=== PATIENT | female | born 1980 | race African-American/Black ===

== ENCOUNTER 2016-10-12 17:56 | Emergency (ER) | payer BC, MEDICARE ==
[~2016-10-12] VITALS: Ht 160 cm; Wt 106.4 kg
[2016-10-12 17:56] VITALS: TEMP 98.5; Ht 160 cm; Wt 106.4 kg
[~2016-10-12 17:56] MED LIST changes: -ALBU90AE INH; -GADOBUTROL 10mMol/10ml INJECTION IV ONE; -INSU100I12 SQ; -NORMAL SALINE 50 ML IV ONE; -SALINE FLUSH 10ml SYRINGE ONE
--- NOTE | 2016-10-12 18:01 | ERPDOC ---
Departure Disposition Decision Date: Oct 12, 2016 Disposition Decision Time: 18:31 Disposition: 01 DISCHARGED HOME, SELF-CARE Impression Impression Impression: Primary Impression: Medication reaction Encounter type: initial encounter Qualified Codes: T88.7XXA - Unspecified adverse effect of drug or medicament, initial encounter Severity: Moderate Condition: Improved Seen By: Physician only Referrals: AMY GONZALEZ MD (Family) Patient Instructions: Adverse Drug Reaction (ED) Problems/Meds/Labs Reviewed?: Yes Medications reviewed and manag: Yes Additional Instructions: Avoid gadolinium dye in the future May use Benadryl up to 50 mg every 6 hours as needed for itching or rash or tingling to the face Zofran 4 mg tablets one every 6 hours as needed for nausea or vomiting Follow up care ordered?: Yes Mental Status: Alert HPI - General Medical General Stated Complaint: REACTION TO CONTRACT Time Seen by Provider: 17:59 Source: patient Exam Limitations: no limitations HPI - General Medical Initial Comments Patient was in the radiology department getting an MRI ordered by Dr. El, when she began having nausea vomiting and tingling to the left side of her face and body, just after IV contrast, gadolinium, was administered. Patient has no known allergies to contrast dye Patient is having the MRI of the brain done for evaluation of her pituitary gland. Occurred At: other Onset: Rapid Duration: 1/2 hour Severity: moderate Associated Symptoms: nausea/vomiting, DENIES: chest pain, cough, diaphoresis, fever/chills, headaches, loss of appetite, malaise, rash, seizure, shortness of breath, syncope, weakness Allergies: Coded Allergies: Beef Containing Products (Verified Allergy, Unknown, hives, 02/10/16) Pork/Porcine Containing Products (Verified Allergy, Unknown, HIVES, ) aspirin (Verified Allergy, Unknown, 02/10/16) hydrocodone bit (Verified Allergy, Unknown, 02/10/16) latex (Verified Allergy, Unknown, 02/10/16) red dye (Verified Allergy, Unknown, 02/10/16) risperidone (Verified Allergy, Unknown, 02/10/16) ziprasidone (Verified Allergy, Unknown, 02/10/16) Insulin Glargine,Hum.Rec.Anlog (Verified Adverse Reaction, Unknown, MIGRAINE,NAUSEA, 02/10/16) Uncoded Allergies: FLU (Allergy, Unknown, 11/09/13) PAPER TAPE (Allergy, Unknown, 11/21/11) Past History Past Medical History Metabolic: diabetes, hypertension ENMT: allergies Respiratory: asthma GI: GERD, ulcers Female: UTI, other Psychological: depression Surgical History General: gallbladder, hernia, other Family History Family PMH: FOUND: CVA, asthma, cancer, diabetes, hypercholesterolemia, hypertension Vaccines Hx Influenza Vaccination: No Hx Pneumococcal Vaccination: No Hx Tetanus, Diptheria, Pertuss: Yes (2009) Review of Systems Constitutional Constitutional: DENIES: appetite decrease, appetite increase, chills, dizziness , fever, weakness ENMT Ears: DENIES: pain Hearing: DENIES: hearing loss, tinnitus Balance: DENIES: vertigo Mouth/Throat: DENIES: change in swallowing, change in voice, hoarsness, painful swallowing, sore throat Cardiovascular Cardiac: DENIES: chest pain, dyspnea on exertion Rhythm/Rate: DENIES: irregular beat, palpitations, tachycardia Vascular: DENIES: pedal edema Pulmonary Respiratory: DENIES: cough, dyspnea, pleuritic chest pain GI Upper Abdomen: nausea, vomiting, DENIES: dysphagia, heartburn/indigestion, pain Lower Abdomen: DENIES: blood in stool, constipation, diarrhea, pain General: DENIES: burning, dysuria, frequency, pain, urgency Musculoskeletal General: DENIES: cramps, joint pain, joint swelling, pain, weakness Integumentary Skin: DENIES: rash, sores Neurological General: DENIES: headache, numbness, tingling, vertigo, weakness Comments paraesthesia to left side, shakiness Psychiatric Psychiatric: DENIES: anxiety, depression, nervousness Physical Exam General General Nourishment: well nourished, well developed, appears stated age, obese General Body Habitus: well groomed Vitals and Pain Weight: Kilograms: Height (feet): 5 Height (inches): 3.00 Triage Pain Scale: RN VS reviewed by Provider: Yes Normal Exams: Head: Normocephalic w/o trauma Eyes: Pupils are PERRLA w/ EOMI, No scleral icterus, irritation, or foreign bodies noted ENMT: No facial trauma, nasal exudates, pharyngeal erythema, or exudates are noted Neck: Full range of motion, without adenopathy, JVD, bruits or thyromegaly Chest/Resp: Clear all conley, with good airflow, and symmetry bilaterally CV: Regular rate and rhythm, without murmur or gallop, Pulses 2+ all extremities, capillary refill, <2 seconds all ext., no pedal edema noted Abdomen: Bowel sounds positive, soft, non-tender, non-distended, no hepatosplenomegaly, masses or bruits noted Lymphatic: No lymphadenopathy, or lymphedema noted Musculoskeletal: No tenderness, or deformity noted, good range of motion, all extremities Integumentary: No rashes, hives, or bruising noted, hair and nails, without abnormality Neurologic: Patient is alert, and oriented, cranial nerves, motor/sensory/ cerebellar, exams w/o gross deficits, to observation Psychiatric: Patient exhibits, appropriate attention, emotion and affect Neurologic (brief) Comments She appears shaky and nervous, has no loss of sensation or muscle tone to the body, and no facial drooping. Progress Progress Progress Patient given Zofran 4 mg and Benadryl 50 mg IV Observed in ER - symptoms have been relieved HERLINDA ARRIAGA MD Oct 12, 2016 18:01
[2016-10-12] MEDS ORDERED: ALBU90AE INH (18:17)
[2016-10-12] MEDS ORDERED: INSU100I12 SQ ×2 (18:19)
[2016-10-12 18:45] VITALS: BP 131/72; PULSE 86; RESP 16; O2SAT 97
[2016-10-12] MEDS ORDERED: ONDANSETRON 4mg/2ml INJECTION IV ONE (18:45)
[2016-10-12] MEDS ORDERED: ONDANSETRON ODT 4mg #3 (PrePack) SENT HOME ONE (18:45)
[2016-10-12] MEDS ORDERED: DiphenhydrAMINE 50 MG/ML INJECTION IV ONE (18:45)
== END 2016-10-12 18:50 | disposition home or self-care (01) ==
LOC: ED 17:56
DX: R11.2 Nausea with vomiting, unspecified (principal); R20.2 Paresthesia of skin; T50.8X5A Adverse effect of diagnostic agents, initial encounter; Y92.89 Other specified places as the place of occurrence of the external cause
CPT/HCPCS: 96374; 96375; 99284; J1200; J2405

== ENCOUNTER → 2016-10-12 | Outpatient (CLI) | payer BC, MEDICARE ==
[~2016-10-12] MED LIST: ALBU8.5H INH; ALBU90AE INH; AZEL137S11 EA NOSTRIL; CANA300T PO; CETI10CA19 PO; FERR324T4 PO; FLUC150T5 PO; FLUT16SP EA NOSTRIL; GADOBUTROL 10mMol/10ml INJECTION IV ONE; GLIM4TAB3 PO; INSU100I12 SQ; IRON45TA10 PO; MELO7.5T12 PO; MONT10TA25 PO; NORMAL SALINE 50 ML IV ONE; PREN-108 PO; PROG200C7 PO; SALINE FLUSH 10ml SYRINGE ONE; SITA1TAB6 PO; TRAM50TA4 PO; VALS80TA2 PO
--- NOTE | 2016-10-13 08:37 | DI ---
Indication: ITS.REASON: D35.2 Benign neoplasm of pituitary gland PROCEDURE: MRI BRAIN W/WO CONTRAST: Encounter: Subsequent Comparisons: Brain MRI dated December 28, 2012 Technique: Multiplanar, multisequence, MR imaging of the head with and without contrast was acquired. Special sequences were performed with attention to the pituitary gland with dynamic postcontrast sequences. Contrast: 7.5 mL of Gadavist FINDINGS: Pituitary: I do not identify any discrete pituitary mass. There are no hyper or hypoenhancing pituitary lesions appreciated. The patient was unable to complete the full postcontrast exam due to nausea. The pituitary stalk is midline. Brain: The ventricles are of normal size, shape, and contour for the patient's age. The brain stem, cerebellum, and cerebral hemispheres have a normal morphologic appearance as well as MR signal intensity on all pulse sequences. Following intravenous administration of contrast, no areas of abnormal enhancement are evident. There are no areas of restricted diffusion to suggest an acute infarct. There is no evidence of an intracranial mass lesion, intracranial hemorrhage, or hydrocephalus. The visualized portions of the orbits, calvarium, paranasal sinuses, and skull base demonstrate no significant abnormality. IMPRESSION: Limited exam as the patient could not complete all of the postcontrast sequences. I do not identify any discrete pituitary mass on the sequences we were able to perform. Negative exam overall with no acute disease process seen. .
== END ==
LOC: IMA 16:39
PROVIDERS: ATTEND Internal Medicine Endocrinology, Diabetes & Metabolism
DX: D35.2 Benign neoplasm of pituitary gland (principal)
CPT/HCPCS: 70553; A9585; J7050